=== PATIENT | male | born 2000 | race Caucasian/White ===

== ENCOUNTER 2023-07-11 13:39 | Outpatient (AMB) | payer OTHER, SELFPAY ==
[2023-07-11 13:54] VITALS: BP 148/82; PULSE 71; O2SAT 99; BMI 26.6
--- NOTE | 2023-07-11 13:54 | A.OFFPC_ITS ---
Vital Signs 07/11/23 13:54 Height 5 ft 9 in Weight 180 lb BMI 26.6 BP 148/82 H Blood Pressure Location Rt brachial Position Sitting Pulse 71 Pulse Source Pulse Oximeter Pulse Oximetry (%) 99 Oxygen Delivery Method Room Air Intake Visit Reasons: npv- requesting phy Allergies No Known Allergies Allergy (Verified 07/11/23 13:58) Medication List - Last Reconciled 07/11/23 by Esha Jenkins MD clonidine HCl 0.1 mg PO BID Tobacco use date assessed: 07/11/23 Dental Screening Dental Screen Date: 07/11/23 Did you have a dental visit in the last 12 months?: No Did you have a dental problem in the last 6 months where you did not have access to dental care?: No Was dental information given to patient?: No HPI npv- requesting phy HPI Details Patient is 23-year-old gentleman came in today for his initial establish care visit and physical examination Patient have a strong family history of bipolar disorder He is suffering from anxiety, currently patient is seeing a counselor as well as psychiatrist Patient have a history of PTSD as well secondary to serving in [employer] 2018 He said that his anxiety got worse after that. His blood pressure is elevated today at 148/82 patient says that it usually is when he comes to a medical facility. I have told him to get a blood pressure monitor and start monitoring his blood pressure at home. Normal blood pressure is 120/80 Order placed for labs to be done fasting Patient also have numerous moves of different size and she on his body I have placed a referral for him to see maintenance machine repairer. Physical exam 1 year, we will book in other appointment after the blood test report is available. If needed [facility] Social History Housing: Condominium Patient Tobacco Use Status: Never used Tobacco e-Cigarette/Vaping Use: Never Used service: No Current occupational status: employed Cognitive needs: No Hearing needs: No Vision needs: Yes Questionnaire PHQ-9 Over the last 2 weeks, how often have you been bothered by any of the following problems? 1. Little interest or pleasure in doing things: several days 2. Feeling down, depressed, or hopeless: several days 3. Trouble falling or staying asleep, or sleeping too much: not at all 4. Feeling tired or having little energy: several days 5. Poor appetite or overeating: not at all 6. Feeling bad about yourself - or that you are a failure or have let yourself or your family down: not at all 7. Trouble concentrating on things, such as reading the newspaper or watching television: not at all 8. Moving or speaking so slowly that other people could have noticed. Or the opposite - being so fidgety or restless that you have been moving around a lot more than usual: not at all 9. Thoughts that you would be better off or of hurting yourself in some way: not at all Total score: 3 Depression Screening Interpretation: Negative 41272 - PHQ-9 Billing: Yes Source: Developed by Drs. Jm Mesa, Bia Felton, Juan Canales and colleagues, with an educational mary from [employer]. Thrive Questionnaire Date Thrive assessed: 07/11/23 I am a: Patient What is your living situation today?: I have a steady place to live Within the past 12 months, did the food you bought not last and you didn't have the money to get more?: Never true Do you have trouble paying for medicines?: No Do you have trouble getting transportation to medical appointments?: No Do you have trouble paying your heating and electricity bill?: No Do you have trouble taking care of your child, family member or friend?: No Do you have trouble with day-to-day activities such as bathing, preparing meals, shopping, managing finances, etc.?: No Are you currently unemployed and looking for a job?: No Are you interested in more education?: No AUDIT C Alcohol Use Questionnaire (AUDIT-C) 1. How often do you have a drink containing alcohol?: Never 3. How often do you have six or more drinks on one occasion?: Never Total Score: 0 Score Reviewed/Action Taken: Yes SERAFIN-7 AMB Questionnaire SERAFIN-7 Date SERAFIN - 7 assessed: 07/11/23 Feeling nervous, anxious, or on edge: 2 = More than half the days Not being able to stop or control worryin = More than half the days Worrying too much about different things: 2 = More than half the days Trouble relaxin = More than half the days Being so restless that it is hard to sit still: 1 = Several days Becoming easily annoyed or irritable: 2 = More than half the days Feeling afraid as if something awful might happen: 0 = Not at all Total SERAFIN-7 score (0-4 normal; 5-9 mild; 10-14 moderate; 15-21 severe): 11 Source: Developed by Drs. Jm Mesa, Bia Felton, Juan Canales and colleagues, with an educational mary from [employer]. SERAFIN-7 Assessment Billing SERAFIN-7 Assessment Tool: SERAFIN-7 Assessment [id number] Review of Systems Const Denies chills, Denies fever(s) and Denies headache(s) Eyes Denies blurry vision ENT Denies headache(s), Denies nasal discharge, Denies nasal obstruction, Denies odynophagia and Denies sinus pain Card Denies chest pain at rest and Denies chest pain with activity Resp Denies cough and Denies hemoptysis GI Denies diarrhea, Denies odynophagia, Denies vomiting and Denies hematemesis Reports as per HPI Musc Denies abnormal gait Skin/Breast Reports as per HPI Neuro Denies Neuro-related abnormal movements, Denies Abnormal speech present, Denies abnormal gait, Denies headache(s) and Denies Sensory deficit (Neuro) Psych Denies mood swings and Denies paranoia Endo Reports as per HPI Rich/Lymph Reports as per HPI Aller/Immun Reports as per HPI Physical exam (Primary Care) Vital Signs: Last Vital Signs Pulse 71 07/11/23 13:54 BP 148/82 H 07/11/23 13:54 Pulse Ox 99 07/11/23 13:54 Oxygen Delivery Method Room Air 07/11/23 13:54 BMI result Body Mass Index 26.6 Tobacco/Smoking Status: Tobacco use Status Tobacco use date assessed 07/11/23 07/11/23 14:01 Patient Tobacco Use Status Never used Tobacco 07/11/23 14:01 e-Cigarette/Vaping Use Never Used 07/11/23 14:01 PHQ-9: PHQ-9 Score PHQ-9: Total score 3 07/11/23 14:23 Depression Screening Interpretation: Negative Thrive Assessment: Date of Thrive Assessment Date Thrive assessed 07/11/23 07/11/23 14:09 Const General: cooperative, comfortable and no acute distress Orientation/consciousness: patient oriented x3 HENMT Head: Yes normocephalic and Yes atraumatic Eyes General: appearance normal, both eyes and all related structures Pupils: Equal, round and reactive pupils present EOM: EOMs intact bilaterally Neck Neck: Yes supple and No lymphadenopathy Thyroid: Thyroid normal Lymphatic: no lymphadenopathy noted Resp Effort & Inspection: normal respiratory effort and able to speak in complete sentences Auscultation: clear to auscultation bilaterally Cardio Heart sounds: S1 normal heart sound present and S2 normal heart sound present GI Palpation (GI): Soft to palpation and nontender Auscultation: normal bowel sounds General: Yes no CVA tenderness Back/Spine/Pelvis Back: no CVA tenderness Skin General skin exam: elasticity normal and turgor normal Neuro General: patient oriented x3 and gait normal Cranial nerves: Yes Equal, round and reactive pupils present Speech: No Abnormal speech present Sensory Exam: No Sensory deficit (Neuro) Coordination: tandem gait normal and Romberg test negative Extrem General: Yes normal exam except as noted and No edema Assessment and Plan Assessment & Plan (1) Encounter for general adult medical examination with abnormal findings: Code(s): Z00.01 - Encounter for general adult medical examination with abnormal findings (2) PTSD (post-traumatic stress disorder): Code(s): F43.10 - Post-traumatic stress disorder, unspecified (3) Anxiety, generalized: Code(s): F41.1 - Generalized anxiety disorder (4) Elevated blood pressure reading: Code(s): R03.0 - Elevated blood-pressure reading, without diagnosis of hypertension (5) Skin cancer screening: Code(s): Z12.83 - Encounter for screening for malignant neoplasm of skin Plan Patient is 23-year-old gentleman came in today for his initial establish care visit and physical examination Patient have a strong family history of bipolar disorder He is suffering from anxiety, currently patient is seeing a counselor as well as psychiatrist Patient have a history of PTSD as well secondary to serving in [employer] 2018 He said that his anxiety got worse after that. His blood pressure is elevated today at 148/82 patient says that it usually is when he comes to a medical facility. I have told him to get a blood pressure monitor and start monitoring his blood pressure at home. Normal blood pressure is 120/80 Order placed for labs to be done fasting Patient also have numerous moves of different size and she on his body I have placed a referral for him to see maintenance machine repairer. Physical exam 1 year, we will book in other appointment after the blood test rep ort is available. If needed Orders: Orders Comprehensive Java. Panel Fast Today F41.1 - Generalized anxiety disorder, F43.10 - Post-traumatic stress disorder, unspecified, R03.0 - Elevated blood- pressure reading, without diagnosis of hypertension Lipid Panel Today F41.1 - Generalized anxiety disorder, F43.10 - Post-traumatic stress disorder, unspecified, R03.0 - Elevated blood-pressure reading, without diagnosis of hypertension TSH reflex Free T4 Today F41.1 - Generalized anxiety disorder, F43.10 - Post- traumatic stress disorder, unspecified, R03.0 - Elevated blood-pressure reading, without diagnosis of hypertension Complete Blood Count Auto Diff Today F41.1 - Generalized anxiety disorder, F43.10 - Post-traumatic stress disorder, unspecified, R03.0 - Elevated blood- pressure reading, without diagnosis of hypertension Referrals Dermatology Referral Z12.83 - Encounter for screening for malignant neoplasm of skin Coding Level of Care Code New Pt Prev Care [id number]([id number] Diagnoses Encounter for general adult medical examination with abnormal findings Z00.01 PTSD (post-traumatic stress disorder) F43.10 Anxiety, generalized F41.1 Elevated blood pressure reading R03.0 Skin cancer screening Z12.83 Additional Codes SERAFIN-7 Assessment Billing - SERAFIN-7 Assessment Tool: SERAFIN-7 Assessment [id number] ([id number])
== END 2023-07-11 14:42 | disposition home or self-care (01) ==
PROVIDERS: PCP Internal Medicine; Visit Provider Internal Medicine
DX: Z00.01 Encounter for general adult medical examination with abnormal findings (principal); F43.10 Post-traumatic stress disorder, unspecified; F41.1 Generalized anxiety disorder; R03.0 Elevated blood-pressure reading, without diagnosis of hypertension; Z12.83 Encounter for screening for malignant neoplasm of skin
CPT/HCPCS: 99385

== ENCOUNTER 2023-07-12 08:35 | Outpatient (REF) | payer OTHER, SELFPAY ==
[2023-07-12 11:47] LABS: MANUAL DIFF FLAG NO
[2023-07-12 11:51] LABS: Basophils Percent Auto 0.7 % (0-2); Eosinophils Absolute Auto 0.1 X10*3/uL (0.0-0.4); Eosinophils Percent Auto 1.7 % (0-4); Hematocrit 50.7 % (42.0-52.0); Hemoglobin 17.3 g/dl (14.0-18.0); Imm Gran Abs Auto 0.03 X10*3/uL (0.00-0.03); Imm Gran Pct Auto 0.5 % (0.0-0.4); Lymphocytes Absolute Auto 1.7 X10*3/uL (1.2-4.9); Lymphocytes Percent Auto 28.5 % (20-40); Mean Corpuscular HGB Conc 34.1 g/dl (31.0-36.0); Mean Corpuscular Hemoglobin 30.1 pg (27.0-33.0); Mean Corpuscular Volume 88.3 fL (80.0-98.0); Mean Platelet Volume 9.6 fL (9.4-12.4); Monocytes Absolute Auto 0.6 X10*3/uL (0.1-1.2); Monocytes Percent Auto 9.3 % (2-11); Neutrophils Absolute Auto 3.6 x10*3/uL (2.0-8.3); Neutrophils Percent Auto 59.3 % (45-73); Platelet Count 321 X10*3/uL (160-400); Red Blood Count 5.74 X10*6/uL (4.60-5.80); Red Cell Distribution Width 11.9 % (11.0-16.0)
[2023-07-12 12:41] LABS: Alanine Aminotransferase 16 U/L (0-40); Albumin Level 4.8 g/dL (3.5-5.0); Alkaline Phosphatase 78 U/L (39-117); Anion Gap 12 (12-20); Aspartate Amino Transferase 17 U/L (5-37); Bilirubin Total 1.1 mg/dL (0.0-1.0); Blood Urea Nitrogen 17 mg/dL (9-16); Calcium 9.9 mg/dL (8.4-10.2); Carbon Dioxide 29 mmol/L (22-29); Chloride 105 mmol/L (96-108); Cholesterol 146 mg/dL (<200); Estimated Glomerular Filt Rate > 60; Glucose Fasting 89 mg/dL (60-99); HDL Cholesterol 37 mg/dL (>40); LDL Cholesterol Calculated 83 mg/dL (<100); Potassium 4.1 mmol/L (3.3-5.1); Sodium 142 mmol/L (135-145); TSH reflex Free T4 2.54 uIU/mL (0.32-4.0); Total Protein 7.4 g/dL (6.5-8.0); Triglycerides 134 mg/dL (<150)
== END 2023-07-12 08:36 | disposition home or self-care (01) ==
LOC: HO.HMGCLDS 08:35
PROVIDERS: PCP Internal Medicine; Visit Provider Internal Medicine
DX: F41.1 Generalized anxiety disorder (principal); F43.10 Post-traumatic stress disorder, unspecified; R03.0 Elevated blood-pressure reading, without diagnosis of hypertension
CPT/HCPCS: 36415; 80053; 80061; 84443; 85025

== ENCOUNTER 2023-08-31 09:06 | Outpatient (AMB) | payer OTHER, SELFPAY ==
[2023-08-31 09:08] VITALS: BP 122/60; PULSE 89; TEMP 37.2; O2SAT 98; BMI 27.8
--- NOTE | 2023-08-31 09:08 | AM.OFFWIN_ITS ---
Intake Vital Signs 08/31/23 09:08 Height 5 ft 9 in Weight 188 lb BMI 27.8 BP 122/60 Blood Pressure Location Lt brachial Position Sitting Pulse 89 Pulse Source Pulse Oximeter Temp 99.0 F Temp Source Temporal Artery Scan Pulse Oximetry (%) 98 Oxygen Delivery Method Room Air Intake Visit Reasons: EST/cough and runny nose(lobby masked) Intake Note: pt is here for c/o cough and runny nose Patient Tobacco Use Status: Never used Tobacco Allergies No Known Allergies Allergy (Verified 08/31/23 09:09) Do you need a note to return to daycare/school/sports/work: Yes HPI HPI Comments History of Present Illness Details The patient presents to urgent care for evaluation of flu-like symptoms. Reports has been going on for 2 days with runny nose nasal congestion low-grade fever and cough. To go home COVID test which is negative patient believes he may have the flu [facility] Social History Housing: Condominium Patient Tobacco Use Status: Never used Tobacco e-Cigarette/Vaping Use: Never Used service: No Current occupational status: employed Cognitive needs: No Hearing needs: No Vision needs: Yes Review of Systems Const Reports body aches, Reports chills, Reports fatigue, Reports fever(s), Reports headache(s) and Reports malaise ENT Denies dizziness, Reports headache(s), Reports nasal congestion and Reports sore throat Card Denies rapid heart rate, Denies dyspnea and Denies dyspnea on exertion Resp Denies dyspnea and Denies dyspnea on exertion GI Denies dyspepsia and Denies heartburn Musc Denies arthralgias and Denies muscle cramps Neuro Denies dizziness, Reports headache(s), Denies focal weakness and Denies Other visual disturbances Endo Reports fatigue Physical Exam Vital Signs: Last Vital Signs Temp 99.0 F 08/31/23 09:08 Pulse 89 08/31/23 09:08 BP 122/60 08/31/23 09:08 Pulse Ox 98 08/31/23 09:08 Oxygen Delivery Method Room Air 08/31/23 09:08 BMI result Body Mass Index 27.8 Const General: healthy appearing and no acute distress HEENT Mouth: Normal oral and palatal mucosa present Resp Effort & Inspection: normal respiratory effort and able to speak in complete sentences Auscultation: clear to auscultation bilaterally Cardio Rate: regular rate Rhythm: regular rhythm Assessment & Plan Assessment & Plan (1) Flu-like symptoms: Code(s): R68.89 - Other general symptoms and signs Plan Acute viral illness. Recommend ibuprofen work note given COVID flu swab obtained Orders: Orders SARS-CoV2/FLU/RSV Today R68.89 - Other general symptoms and signs Coding Level of Care Code Est Pt Level 3 (85047) Diagnoses Flu-like symptoms R68.89
== END 2023-08-31 10:07 | disposition home or self-care (01) ==
PROVIDERS: PCP Internal Medicine; Visit Provider Emergency Medicine
DX: R68.89 Other general symptoms and signs (principal)
CPT/HCPCS: 99213

== ENCOUNTER 2023-08-31 09:38 | Outpatient (REF) | payer OTHER, SELFPAY ==
[2023-08-31 13:22] LABS: Influenza A PCR NEGATIVE (Negative); Influenza B PCR NEGATIVE (Negative); Resp Syncy Virus RNA Qual PCR NEGATIVE (Negative); SARS COV2 PCR INHOUSE NEGATIVE (Negative)
== END 2023-08-31 09:39 | disposition home or self-care (01) ==
LOC: HO.LAB 09:38
PROVIDERS: Visit Provider Emergency Medicine
DX: Z11.52 Encounter for screening for COVID-19 (principal); Z20.822 Contact with and (suspected) exposure to COVID-19; R68.89 Other general symptoms and signs
CPT/HCPCS: 0241U

== ENCOUNTER 2023-09-15 09:51 | Outpatient (REF) | payer OTHER, SELFPAY ==
[2023-09-16 03:43] LABS: HIV AB/AG Nonreactive (Nonreactive); HIV Num 1 0.06 S/CO (0.00-0.99)
== END 2023-09-15 09:52 | disposition home or self-care (01) ==
LOC: HO.HMGCLDS 09:51
PROVIDERS: PCP Internal Medicine; Visit Provider Internal Medicine
DX: Z11.4 Encounter for screening for human immunodeficiency virus [HIV] (principal)
CPT/HCPCS: 36415; 87389

== ENCOUNTER 2024-01-19 13:09 | Outpatient (AMB) | payer OTHER, SELFPAY ==
--- NOTE | 2024-01-19 13:11 | A.OFFPC_ITS ---
Vital Signs 3 01/19/24 13:13 Height 5 ft 9 in Weight 189 lb BMI 27.9 BP 140/80 H Blood Pressure Location Rt brachial Position Sitting Pulse 82 Pulse Source Pulse Oximeter Pulse Oximetry (%) 98 Oxygen Delivery Method Room Air Intake Visit Reasons: Orthopedic Referral~ Allergies No Known Allergies Allergy (Verified 01/19/24 13:14) Medication List - Last Reconciled 01/19/24 by Esha Jenkins MD hydroxyzine HCl 25 mg PO QID sertraline 50 mg PO DAILY Tobacco use date assessed: 01/19/24 Dental Screening Dental Screen Date: 01/19/24 Did you have a dental visit in the last 12 months?: Yes Did you have a dental problem in the last 6 months where you did not have access to dental care?: No Was dental information given to patient?: Patient has dentist HPI Orthopedic Referral~ 2 HPI0 Details CC : right ankle pain with activities Ankle pain has been happening since 2019 off and, patient has twisted it 3 times while at work he has seen specialist twice no swelling feel unstable while running that is pain starts when he is active no paresthesia patient would like to be evaluated by Orthopedic [facility] Social History Housing: Condominium Patient Tobacco Use Status: Never used Tobacco e-Cigarette/Vaping Use: Never Used service: No Current occupational status: employed Cognitive needs: No Hearing needs: No Vision needs: Yes Questionnaire Thrive Questionnaire Date Thrive assessed: 07/11/23 AUDIT C Alcohol Use Questionnaire (AUDIT-C) 1. How often do you have a drink containing alcohol?: Never 3. How often do you have six or more drinks on one occasion?: Never Total Score: 0 Score Reviewed/Action Taken: Yes SERAFIN-7 AMB Questionnaire SERAFIN-7 Date SERAFIN - 7 assessed: 07/11/23 Source: Developed by Drs. Jm Mesa, Bia Felton, Juan Canales and colleagues, with an educational mary from [employer]. Review of Systems Const Denies chills and Denies fever(s) ENT Denies epistaxis and Denies nasal discharge Card Denies chest pain Resp Denies chest congestion, Denies cough and Denies hemoptysis GI Denies diarrhea and Denies nausea Skin/Breast Denies rash Neuro Reports no additional complaints Psych Reports no additional complaints Endo Reports no additional complaints Physical exam (Primary Care) Vital Signs: Last Vital Signs Pulse 82 01/19/24 13:13 BP 140/80 H 01/19/24 13:13 Pulse Ox 98 01/19/24 13:13 Oxygen Delivery Method Room Air 01/19/24 13:13 BMI result Body Mass Index 27.9 Tobacco/Smoking Status: Tobacco use Status Tobacco use date assessed 01/19/24 01/19/24 13:15 Patient Tobacco Use Status Never used Tobacco 01/19/24 13:12 e-Cigarette/Vaping Use Never Used 01/19/24 13:12 Thrive Assessment: Date of Thrive Assessment Date Thrive assessed 07/11/23 01/19/24 13:12 Const General: cooperative, comfortable and no acute distress Orientation/consciousness: patient oriented x3 HENMT Head: Yes normocephalic Eyes General: appearance normal, both eyes and all related structures Neck Neck: Yes supple Resp Effort & Inspection: normal respiratory effort, no cough and no stridor Skin General skin exam: turgor normal Neuro General: patient oriented x3, tone normal and moves all extremities Extrem Right lower extremity: no edema Left lower extremity: no edema Ankle/foot/toe images: 2 1. Pain with pressure, range of motion Hien intact, dorsalis pedis pulse 2 +, moving all dose without any pain, no skin lesion no swelling Assessment and Plan Assessment & Plan (1) Chronic pain of right ankle: Code(s): M25.571 - Pain in right ankle and joints of right foot; G89.29 - Other chronic pain Plan CC : right ankle pain with activities Ankle pain has been happening since 2019 off and, patient has twisted it 3 times while at work he has seen specialist twice no swelling feel unstable while running that is pain starts when he is active no paresthesia patient would like to be evaluated by Orthopedic Orders: Referrals 2 Orthopedics Referral G89.29 - Other chronic pain, M25.571 - Pain in right ankle and joints of right foot Coding Level of Care Code Est Pt Level 3 (02182) Diagnoses Chronic pain of right ankle M25.571; G89.29
[2024-01-19 13:13] VITALS: BP 140/80; PULSE 82; O2SAT 98; BMI 27.9
== END 2024-01-19 16:07 | disposition home or self-care (01) ==
PROVIDERS: PCP Internal Medicine; Visit Provider Internal Medicine
DX: M25.571 Pain in right ankle and joints of right foot (principal); G89.29 Other chronic pain
CPT/HCPCS: 99213

== ENCOUNTER 2024-02-02 14:31 | Outpatient (AMB) | payer OTHER, SELFPAY ==
[2024-02-02 14:34] VITALS: BP 142/88; PULSE 88; O2SAT 95; BMI 27.8
--- NOTE | 2024-02-02 14:34 | MHC.PC.OV ---
Vital Signs 02/02/24 14:34 Height 5 ft 9 in Weight 188 lb 4 oz BMI 27.8 BP 142/88 H Blood Pressure Location Rt brachial Position Sitting Pulse 88 Pulse Source Pulse Oximeter Pulse Oximetry (%) 95 Oxygen Delivery Method Room Air Intake Visit Reasons: Numbness, burning, and pain in hands Allergies No Known Allergies Allergy (Verified 02/02/24 14:36) Medication List - Last Reconciled 02/02/24 by Esha Jenkins MD hydroxyzine HCl 25 mg PO QID sertraline 50 mg PO DAILY Tobacco use date assessed: 02/02/24 Dental Screening Dental Screen Date: 01/19/24 Did you have a dental visit in the last 12 months?: Yes Did you have a dental problem in the last 6 months where you did not have access to dental care?: No Was dental information given to patient?: Patient has dentist HPI Numbness, burning, and pain in hands HPI Details Patient is 24-year-old gentleman came in today to be evaluated for possible carpal tunnel syndrome Patient has been working for past 8 years with computer at work and then again when he gets back home He is wearing brace especially at night for the past 3 years, initially it was working but not anymore He is complaining of feeling weakness in his hand and is dropping things. I have ordered EMG nerve conduction study for the patient and he will be evaluated by a hand specialist. Meanwhile he is to continue with the wrist splints [facility] Social History Housing: Condominium Patient Tobacco Use Status: Never used Tobacco e-Cigarette/Vaping Use: Never Used service: No Current occupational status: employed Cognitive needs: No Hearing needs: No Vision needs: Yes Questionnaire Thrive Questionnaire Date Thrive assessed: 07/11/23 I am a: Patient What is your living situation today?: I have a steady place to live Within the past 12 months, did the food you bought not last and you didn't have the money to get more?: Never true Within the past 12 months, did you worry whether your food would run out before you got money to buy more?: Never true THRIVE Score: 0 AUDIT C Alcohol Use Questionnaire (AUDIT-C) 1. How often do you have a drink containing alcohol?: Never 3. How often do you have six or more drinks on one occasion?: Never Total Score: 0 Score Reviewed/Action Taken: Yes SERAFIN-7 AMB Questionnaire SERAFIN-7 Date SERAFIN - 7 assessed: 07/11/23 Feeling nervous, anxious, or on edge: 1 = Several days Not being able to stop or control worryin = Not at all Worrying too much about different things: 0 = Not at all Trouble relaxin = Several days Being so restless that it is hard to sit still: 0 = Not at all Becoming easily annoyed or irritable: 0 = Not at all Feeling afraid as if something awful might happen: 0 = Not at all Total SERAFIN-7 score (0-4 normal; 5-9 mild; 10-14 moderate; 15-21 severe): 2 Source: Developed by Drs. Jm Mesa, Bia Felton, Juan Canales and colleagues, with an educational mary from [employer]. Review of Systems Const Denies chills and Denies fever(s) ENT Denies epistaxis and Denies nasal discharge Card Denies chest pain Resp Denies chest congestion, Denies cough and Denies hemoptysis GI Denies diarrhea and Denies nausea Skin/Breast Denies rash Neuro Reports no additional complaints Psych Reports no additional complaints Endo Reports no additional complaints Physical exam (Primary Care) Vital Signs: Last Vital Signs Pulse 88 02/02/24 14:34 BP 142/88 H 02/02/24 14:34 Pulse Ox 95 02/02/24 14:34 Oxygen Delivery Method Room Air 02/02/24 14:34 BMI result Body Mass Index 27.8 Tobacco/Smoking Status: Tobacco use Status Tobacco use date assessed 02/02/24 02/02/24 14:38 Patient Tobacco Use Status Never used Tobacco 02/02/24 14:38 e-Cigarette/Vaping Use Never Used 02/02/24 14:38 Thrive Assessment: Date of Thrive Assessment Date Thrive assessed 07/11/23 02/02/24 14:38 Const General: cooperative, comfortable and no acute distress Orientation/consciousness: patient oriented x3 HENMT Head: Yes normocephalic Eyes General: appearance normal, both eyes and all related structures Neck Neck: Yes supple Resp Effort & Inspection: normal respiratory effort, no cough and no stridor Cardio Rhythm: regular rhythm Heart sounds: S1 normal heart sound present and S2 normal heart sound present Skin General skin exam: turgor normal Neuro Other: Hand polishing machine tender weaker in left hand, patient is right-handed his symptoms are more so in the right General: patient oriented x3, tone normal and moves all extremities Extrem Right lower extremity: no edema Left lower extremity: no edema Assessment and Plan Assessment & Plan (1) Numbness and tingling in both hands: Code(s): R20.0 - Anesthesia of skin; R20.2 - Paresthesia of skin Plan Patient is 24-year-old gentleman came in today to be evaluated for possible carpal tunnel syndrome Patient has been working for past 8 years with computer at work and then again when he gets back home He is wearing brace especially at night for the past 3 years, initially it was working but not anymore He is complaining of feeling weakness in his hand and is dropping things. I have ordered EMG nerve conduction study for the patient and he will be evaluated by a hand specialist. Meanwhile he is to continue with the wrist splints Orders: Orders NE nerve conduction velocity Today R20.0 - Anesthesia of skin, R20.2 - Paresthesia of skin NE electromyogram (EMG) Today R20.0 - Anesthesia of skin, R20.2 - Paresthesia of skin Coding Level of Care Code Est Pt Level 3 (12816) Diagnoses Numbness and tingling in both hands R20.0; R20.2
== END 2024-02-02 15:25 | disposition home or self-care (01) ==
PROVIDERS: PCP Internal Medicine; Visit Provider Internal Medicine
DX: R20.0 Anesthesia of skin (principal); R20.2 Paresthesia of skin
CPT/HCPCS: 99213

== ENCOUNTER 2024-02-16 10:12 | Outpatient (REF) | payer OTHER, SELFPAY ==
--- NOTE | 2024-02-16 10:19 | EMG_ITS ---
Chief complaint: Hand pain, paresthesias, with activities during the day. Denies nighttime symptoms. Reason for referral: Evaluate for Carpal Tunnel Syndrome Referred by: Dr. Esha Jenkins Procedure done: Bilateral upper extremities NCS/EMG Precautions and/or limitations: None The limb temperature was monitored continuously and remained between 32-36 degrees C during the performance of the NCS. Nerve Conduction Studies Anti Sensory Summary Table ?Stim Site NR Onset (ms) Norm Onset (ms) Peak (ms) Norm Peak (ms) O-P Amp (?V) Norm O-P Amp Site1 Site2 Delta-0 (ms) Dist (cm) Edis (m/s) Norm Edis (m/s) Left Median Anti Sensory (2nd Digit) Wrist ? 2.2 3.0 <3.6 70.0 >10 Wrist 2nd Digit 2.2 14.0 64 Right Median Anti Sensory (2nd Digit) Wrist ? 2.2 2.8 <3.6 71.2 >10 Wrist 2nd Digit 2.2 14.0 64 Left Radial Anti Sensory (Thumb) Forearm ? 1.5 2.0 <3.1 26.6 Forearm Thumb 1.5 0.0 Left Ulnar Anti Sensory (5th Digit) Wrist ? 2.4 3.1 <3.7 23.9 >15.0 Wrist 5th Digit 2.4 14.0 58 Right Ulnar Anti Sensory (5th Digit) Wrist ? 1.9 2.5 <3.7 58.9 >15.0 Wrist 5th Digit 1.9 14.0 74 Motor Summary Table ?Stim Site NR Onset (ms) Norm Onset (ms) O-P Amp (mV) Norm O-P Amp iAmp (mV) Amp (1st) (%) Site1 Site2 Delta-0 (ms) Dist (cm) Edis (m/s) Norm Edis (m/s) Left Median Motor (Abd Poll Brev) Wrist ? 3.5 <3.9 6.3 >4.5 7.3 100.0 Elbow Wrist 4.2 25.0 60 >45 Elbow ? 7.7 5.2 5.8 82.5 Right Median Motor (Abd Poll Brev) Wrist ? 3.0 <3.9 8.3 >4.5 9.5 100.0 Elbow Wrist 3.8 23.5 62 >45 Elbow ? 6.8 8.0 9.1 96.4 Left Ulnar Motor (Abd Dig Minimi) Wrist ? 3.0 <3.0 8.6 >5 10.6 100.0 B Elbow Wrist 3.4 22.0 65 >45 B Elbow ? 6.9 8.1 9.9 94.2 A Elbow B Elbow 1.5 10.0 67 >45 A Elbow ? 8.4 8.5 10.6 98.8 Right Ulnar Motor (Abd Dig Minimi) Wrist ? 2.8 <3.0 10.8 >5 12.4 100.0 B Elbow Wrist 3.7 22.5 61 >45 B Elbow ? 6.5 10.1 12.0 93.5 A Elbow B Elbow 1.8 10.0 56 >45 A Elbow ? 8.3 7.6 9.7 70.4 Comparison Summary Table ?Stim Site NR Peak (ms) Norm Peak (ms) P-T Amp (?V) Site1 Site2 Delta-P (ms) Norm Delta (ms) Right Median/Radial Dig I Comparison (Digit 1 - 10cm) Median ? 2.3 <2.9 92.5 Median Radial 0.1 Radial ? 2.4 <2.8 30.8 EMG ?Side Muscle Nerve Root Ins Act Fibs Psw Amp Dur Poly Recrt Int Pat Comment Right 1stDorInt Ulnar C8-T1 Nml Nml Nml Nml Nml 0 Nml Complete Right FlexCarRad Median C6-7 Nml Nml Nml Nml Nml 0 Nml Complete Right Biceps Musculocut C5-6 Nml Nml Nml Nml Nml 0 Nml Complete Right Triceps Radial C6-7-8 Nml Nml Nml Nml Nml 0 Nml Complete Right Deltoid Axillary C5-6 Nml Nml Nml Nml Nml 0 Nml Complete Left 1stDorInt Ulnar C8-T1 Nml Nml Nml Nml Nml 0 Nml Complete Left FlexCarRad Median C6-7 Nml Nml Nml Nml Nml 0 Nml Complete Left Biceps Musculocut C5-6 Nml Nml Nml Nml Nml 0 Nml Complete Left Triceps Radial C6-7-8 Nml Nml Nml Nml Nml 0 Nml Complete Left Deltoid Axillary C5-6 Nml Nml Nml Nml Nml 0 Nml Complete FINDINGS: All motor and sensory nerves tested showed normal latencies, amplitudes and conduction velocities. Concentric needle EMG was performed in selected muscles of the bilateral upper extremities. Study did not reveal signs of electric abnormalities as shown in the table below. IMPRESSION: 1. This is a normal study. 2. There is no electrodiagnostic evidence for median neuropathy, ulnar neuropathy, brachial plexopathy, or cervical radiculopathy. Thank you for your kind referral. Bere Camacho MD, JASON Board Certified, [place] [employer] and [employer] (ABPMR) Board Certified, [place] Board [employer] Electrodiagnostic Medicine (ABEM) CODIN 60403 x 2 MTDD
== END 2024-02-16 10:13 | disposition home or self-care (01) ==
LOC: HO.NEURO 10:12
PROVIDERS: PCP Internal Medicine; Visit Provider Internal Medicine
DX: R20.0 Anesthesia of skin (principal); R20.2 Paresthesia of skin
CPT/HCPCS: 95886; 95911

== ENCOUNTER → 2024-02-16 10:19 | Outpatient (BNV) | payer OTHER, SELFPAY | PROVIDERS: PCP Internal Medicine; Visit Provider Physical Medicine & Rehabilitation | DX: M79.641 Pain in right hand (principal); M79.642 Pain in left hand; R20.2 Paresthesia of skin | CPT/HCPCS: 95886; 95911 ==

== ENCOUNTER 2024-04-05 14:42 | Outpatient (AMB) | payer OTHER, SELFPAY ==
[2024-04-05 14:51] VITALS: BP 128/80; PULSE 71; O2SAT 98; BMI 27.2
--- NOTE | 2024-04-05 14:51 | A.OFFPC_ITS ---
Vital Signs 04/05/24 14:51 Height 5 ft 9 in Weight 184 lb BMI 27.2 BP 128/80 Blood Pressure Location Lt brachial Position Sitting Pulse 71 Pulse Source Pulse Oximeter Pulse Oximetry (%) 98 Oxygen Delivery Method Room Air Intake Visit Reasons: Immunizations Allergies No Known Allergies Allergy (Verified 04/05/24 14:51) Medication List - Last Reconciled 04/05/24 by Esha Jenkins MD hydroxyzine HCl 25 mg PO QID sertraline 50 mg PO DAILY Tobacco use date assessed: 04/05/24 Dental Screening Dental Screen Date: 04/05/24 Did you have a dental visit in the last 12 months?: Yes Did you have a dental problem in the last 6 months where you did not have access to dental care?: No Was dental information given to patient?: Patient has dentist HPI Immunizations HPI Details Patient is 24-year-old gentleman came in today to get a flu vaccine and blood test Patient is in and he will be retiring in July Patient says that he needs a flu vaccine to complete his paperwork Tried to explain the patient that flu season is over and new vaccine will be coming in July He says that he has still need the flu vaccine otherwise he will not be able to leave He also need a HIV that is also a part of paperwork Order placed. He is taking 2 medications from different provider COUNT INCLUDES THE [facility] Social History Housing: Condominium Patient Tobacco Use Status: Never used Tobacco e-Cigarette/Vaping Use: Never Used service: No Current occupational status: employed Cognitive needs: No Hearing needs: No Vision needs: Yes Questionnaire Thrive Questionnaire Date Thrive assessed: 07/11/23 SERAFIN-7 AMB Questionnaire SERAFIN-7 Date SERAFIN - 7 assessed: 07/11/23 Source: Developed by Drs. Jm Mesa, Bia Felton, Juan Canales and colleagues, with an educational mary from [employer]. Review of Systems Const Denies chills and Denies fever(s) ENT Denies epistaxis and Denies nasal discharge Card Denies chest pain Resp Denies chest congestion, Denies cough and Denies hemoptysis GI Denies diarrhea and Denies nausea Skin/Breast Denies rash Neuro Reports no additional complaints Psych Reports no additional complaints Endo Reports no additional complaints Physical exam (Primary Care) Vital Signs: Last Vital Signs Pulse 71 04/05/24 14:51 BP 128/80 04/05/24 14:51 Pulse Ox 98 04/05/24 14:51 Oxygen Delivery Method Room Air 04/05/24 14:51 BMI result Body Mass Index 27.2 Tobacco/Smoking Status: Tobacco use Status Tobacco use date assessed 04/05/24 04/05/24 14:53 Patient Tobacco Use Status Never used Tobacco 04/05/24 14:53 e-Cigarette/Vaping Use Never Used 04/05/24 14:53 Thrive Assessment: Date of Thrive Assessment Date Thrive assessed 07/11/23 04/05/24 14:53 Const General: cooperative, comfortable and no acute distress Orientation/consciousness: patient oriented x3 HENMT Head: Yes normocephalic Eyes General: appearance normal, both eyes and all related structures Neck Neck: Yes supple Resp Effort & Inspection: normal respiratory effort, no cough and no stridor Cardio Rhythm: regular rhythm Heart sounds: S1 normal heart sound present and S2 normal heart sound present Skin General skin exam: turgor normal Neuro General: patient oriented x3, tone normal and moves all extremities Extrem Right lower extremity: no edema Left lower extremity: no edema Office Procedures Flu Questionnaire Does the patient have a severe egg allergy?: No Does the patient have severe life threatening allergies?: No Does the patient have a fever or illness today?: No Has the patient ever had Guillain-Zoe Syndrome?: No Has the patient ever had any past reaction to a flu shot?: No Immunizations flu vacc [id number] 6mos up(PF) 60 mcg(15 mcgx4)/0.5 mL IM syringe Performing Provider: Esha Jenkins MD Performing Location: [facility] [place] [facility] Administered by: ANGE Hagen on 04/05/24 15:03 Dose Route Admin Location Dispensed Lot Number Expiration Date NDC Territory Account Representative 0.5 mL IM Left Deltoid 0.5 mL [id number] 05/05/24 28408-960-72 [employer] VIS Given Date VIS Provided VIS Publication Date 04/05/24 Single Vaccine 21 Eligibility Eligibility Date Funding Source Not [facility] Eligible 04/05/24 Private Assessment and Plan Assessment & Plan (1) Screening for STD (sexually transmitted disease): Code(s): Z11.3 - Encounter for screening for infections with a predominantly sexual mode of transmission (2) Immunizations incomplete: Code(s): Z28.39 - Other underimmunization status Plan Patient is 24-year-old gentleman came in today to get a flu vaccine and blood test Patient is in and he will be retiring in July Patient says that he needs a flu vaccine to complete his paperwork Tried to explain the patient that flu season is over and new vaccine will be coming in July He says that he has still need the flu vaccine otherwise he will not be able to leave He also need a HIV that is also a part of paperwork Order placed. He is taking 2 medications from different provider Orders: Orders Influenza [id number] Immunization Today Z23 - Encounter for immunization HIV Ab/Ag Today Z11.3 - Encounter for screening for infections with a predominantly sexual mode of transmission Coding Level of Care Code Est Pt Level 3 (40207) Diagnoses Screening for STD (sexually transmitted disease) Z11.3 Immunizations incomplete Z28.39
== END 2024-04-05 16:34 | disposition home or self-care (01) ==
PROVIDERS: PCP Internal Medicine; Visit Provider Internal Medicine
DX: Z11.3 Encounter for screening for infections with a predominantly sexual mode of transmission (principal); Z28.39 Other underimmunization status; Z23 Encounter for immunization
CPT/HCPCS: 90471; 90686; 99213

== ENCOUNTER 2024-04-05 15:07 | Outpatient (REF) | payer OTHER, SELFPAY ==
[2024-04-08 04:25] LABS: HIV AB/AG Nonreactive (Nonreactive); HIV Num 1 0.08 S/CO (0.00-0.99)
== END 2024-04-05 15:08 | disposition home or self-care (01) ==
LOC: HO.HMGCLDS 15:07
PROVIDERS: PCP Internal Medicine; Visit Provider Internal Medicine
DX: Z11.3 Encounter for screening for infections with a predominantly sexual mode of transmission (principal)
CPT/HCPCS: 36415; 87389